=== PATIENT | male | born 1940 | race Caucasian/White ===

== ENCOUNTER 2021-11-02 12:33 | Emergency (ER) | payer MEDICARE, OTHER ==
[2021-11-02] MEDS ORDERED: Lidocaine/Transparent Dressing 1 EACH KIT ONE (14:15)
== END 2021-11-02 20:05 ==
LOC: CSHERS 12:33
DX: S43.402A Unspecified sprain of left shoulder joint, initial encounter (principal); K59.00 Constipation, unspecified; J44.9 Chronic obstructive pulmonary disease, unspecified; M10.9 Gout, unspecified; I48.91 Unspecified atrial fibrillation; E03.9 Hypothyroidism, unspecified; I10 Essential (primary) hypertension; K21.9 Gastro-esophageal reflux disease without esophagitis; Z79.899 Other long term (current) drug therapy; X58.XXXA Exposure to other specified factors, initial encounter

== ENCOUNTER 2022-01-08 00:23 | Inpatient (IN) | payer MEDICARE ==
[2022-01-08 01:16] LABS: #Basophils 0.1 10x3/uL (0.0-0.2); #Eosinphils 0.1 10x3/uL (0.0-0.5); #Monocytes 0.9 10x3/uL (0.0-1.1); #Neutrophils 10.3 10x3/uL (1.5-8.4); %Basophils 0.5 % (0.0-2.0); %Eosinophils 0.5 % (0.0-6.0); %Lymphocytes 5.9 % (18.0-47.0); %Monocytes 7.3 % (0.0-10.0); Hemoglobin 7.9 g/dL (13.5-17.5); Mean Corpuscular HGB CONC 27.7 g/dL (32.0-36.0); Mean Corpuscular Hemoglobin 24.6 pg (27.0-33.0); Mean Corpuscular Volume 88.8 fl (81.2-95.1); Mean Platelet Volume 11.3 fl (7.4-10.4); Platelet Count 190 10x3/uL (150-450); RBC Distribution Width 20.5 % (11.5-14.5); Red Blood Cell (RBC) Count 3.21 10x6/uL (4.32-5.72); White Blood Cell (WBC) Count 12.7 10x3/uL (3.5-10.5)
[2022-01-08 01:33] LABS: Anisocytosis SLIGHT = 6-15 cells (100X) (0-5/hpf); Basophilic Stippling SLIGHT = 1-2 cells (100X) (None Seen); Hypochromia SLIGHT = 6-15 cells (100X) (0-5/hpf); Ovalocytes SLIGHT = 2-5 cells (100X) (0-1/hpf)
[2022-01-08 01:34] LABS: ALT (SGPT) 10 U/L (8-55); AST (SGOT) 19 U/L (5-34); Albumin 3.5 g/dL (3.4-4.8); Alkaline Phosphatase 84 U/L (40-110); BUN (Urea Nitrogen) 24 mg/dL (8.4-25.7); Bilirubin, Total 0.7 mg/dL (0.2-1.2); Calc. Creatinine Clearance 0 mL/min (70-130); Calcium 9.2 mg/dL (7.8-10.44); Globulin 3.8 g/dL (2.4-3.5); Glucose 116 mg/dL (83-110); Protein, Total 7.3 g/dL (5.8-8.1)
[2022-01-08 01:35] LABS: Platelet Morphology Comment Appears Adequate; Stomatocytes SLIGHT = 2-5 cells (100X) (0-1/hpf)
[2022-01-08 01:41] LABS: Anion Gap 21 mmol/L (10-20); Carbon Dioxide 34 mmol/L (23-31); Chloride 94 mmol/L (98-107); Potassium 4.9 mmol/L (3.5-5.1); Sodium 144 mmol/L (136-145)
[2022-01-08] MEDS ORDERED: Furosemide 40 MG/4 ML VIAL ONE (02:14)
[2022-01-08 02:25] LABS: SARS-CoV-2 NAA Rapid Test Not Detected (NotDetected)
[2022-01-08] MEDS ORDERED: Acetaminophen 325 MG TAB PO PRN (02:52)
[2022-01-08] MEDS ORDERED: Ondansetron PF 4 MG/2 ML Vial IVP PRN (02:52)
[2022-01-08] MEDS ORDERED: Senokot S 8.6-50 MG TAB PO PRN (02:52)
[2022-01-08] MEDS ORDERED: ALPRAZolam 0.25 MG TAB PO PRN (02:56)
[2022-01-08] MEDS ORDERED: Digoxin 0.5 MG/2 ML AMP ONE (03:12)
[2022-01-08 04:30] VITALS: BMI 33.7
[2022-01-08] MEDS: Furosemide 20 MG/2 ML VIAL SLOW IVP SCH ×2 (06:01→14:00)
[2022-01-08] MEDS: Levothyroxine Sodium 50 MCG TAB PO SCH (06:01)
[2022-01-08] MEDS: Docusate 100 MG CAP PO SCH ×2 (08:00→21:46)
[2022-01-08] MEDS: Digoxin 0.125 MG TAB PO SCH (08:00)
[2022-01-08] MEDS: Ferrous Sulfate 325 MG TAB PO SCH (08:00)
[2022-01-08] MEDS: Allopurinol 300 MG TAB PO SCH (08:01)
[2022-01-08] MEDS: Apixaban 5 MG TAB PO SCH ×2 (08:01→21:46)
[2022-01-08] MEDS: Pregabalin 50 MG CAP PO SCH ×2 (08:01→21:46)
[2022-01-08 10:29] LABS: #Basophils 0.1 10x3/uL (0.0-0.2); #Eosinphils 0.1 10x3/uL (0.0-0.5); #Neutrophils 6.8 10x3/uL (1.5-8.4); %Basophils 0.5 % (0.0-2.0); %Eosinophils 1.4 % (0.0-6.0); %Lymphocytes 9.6 % (18.0-47.0); %Monocytes 10.4 % (0.0-10.0); %Neutrophils 73.5 % (40.0-75.0); Hemoglobin 7.3 g/dL (13.5-17.5); Mean Corpuscular HGB CONC 28.3 g/dL (32.0-36.0); Mean Corpuscular Volume 88.4 fl (81.2-95.1); Mean Platelet Volume 11.6 fl (7.4-10.4); Platelet Count 163 10x3/uL (150-450); Red Blood Cell (RBC) Count 2.92 10x6/uL (4.32-5.72); White Blood Cell (WBC) Count 9.2 10x3/uL (3.5-10.5)
[2022-01-08 10:40] LABS: BUN (Urea Nitrogen) 24 mg/dL (8.4-25.7); Calc. Creatinine Clearance 93 mL/min (70-130); Calcium 9.1 mg/dL (7.8-10.44); Glucose 115 mg/dL (83-110)
[2022-01-08 10:47] LABS: Anion Gap 15 mmol/L (10-20); Carbon Dioxide 38 mmol/L (23-31); Chloride 91 mmol/L (98-107); Potassium 4.3 mmol/L (3.5-5.1); Sodium 140 mmol/L (136-145)
[2022-01-08 11:00] LABS: CKMB 1.3 ng/mL (0-6.6)
[2022-01-08 15:14] LABS: CKMB 1.4 ng/mL (0-6.6)
[2022-01-08 15:32] LABS: Hemoglobin 7.3 g/dL (13.5-17.5); Platelet Count 174 10x3/uL (150-450)
[2022-01-08 18:28] LABS: CKMB 1.6 ng/mL (0-6.6)
[2022-01-08] MEDS: Tamsulosin HCl 0.4 MG CAP PO SCH (21:45)
[2022-01-08] MEDS: Montelukast Sodium 10 mg Tablet PO SCH (21:45)
[2022-01-08 22:51] LABS: CKMB 1.6 ng/mL (0-6.6)
[2022-01-09] MEDS: Calcium Carbonate 500 MG ChewTAB PO PRN ×2 (01:26→05:35)
[2022-01-09] MEDS: Levothyroxine Sodium 50 MCG TAB PO SCH ×2 (05:25→07:31)
[2022-01-09] MEDS: Furosemide 20 MG/2 ML VIAL SLOW IVP SCH ×2 (05:27→14:00)
[2022-01-09] MEDS ORDERED: Colchicine 0.6 MG TAB PO SCH (06:15)
[2022-01-09] MEDS: Digoxin 0.125 MG TAB PO SCH (08:20)
[2022-01-09] MEDS: Pregabalin 50 MG CAP PO SCH ×2 (08:20→21:47)
[2022-01-09] MEDS: Docusate 100 MG CAP PO SCH ×2 (08:21→21:47)
[2022-01-09] MEDS: Apixaban 5 MG TAB PO SCH (08:21)
[2022-01-09] MEDS: Ferrous Sulfate 325 MG TAB PO SCH (08:21)
[2022-01-09] MEDS: Allopurinol 300 MG TAB PO SCH (08:23)
[2022-01-09] MEDS: Tamsulosin HCl 0.4 MG CAP PO SCH (21:47)
[2022-01-09] MEDS: Montelukast Sodium 10 mg Tablet PO SCH (21:47)
[2022-01-10] MEDS: Calcium Carbonate 500 MG ChewTAB PO PRN (03:25)
[2022-01-10 05:06] LABS: Hemoglobin 8.4 g/dL (13.5-17.5); Mean Corpuscular HGB CONC 29.7 g/dL (32.0-36.0); Mean Corpuscular Hemoglobin 25.5 pg (27.0-33.0); Mean Corpuscular Volume 85.8 fl (81.2-95.1); Mean Platelet Volume 11.6 fl (7.4-10.4); Platelet Count 169 10x3/uL (150-450); RBC Distribution Width 19.9 % (11.5-14.5); White Blood Cell (WBC) Count 7.6 10x3/uL (3.5-10.5)
[2022-01-10 05:10] LABS: ALT (SGPT) 8 U/L (8-55); AST (SGOT) 17 U/L (5-34); Albumin 3.2 g/dL (3.4-4.8); Alkaline Phosphatase 83 U/L (40-110); BUN (Urea Nitrogen) 21 mg/dL (8.4-25.7); Bilirubin, Total 0.8 mg/dL (0.2-1.2); Calc. Creatinine Clearance 110 mL/min (70-130); Calcium 9.3 mg/dL (7.8-10.44); Globulin 3.5 g/dL (2.4-3.5); Glucose 103 mg/dL (83-110); Protein, Total 6.7 g/dL (5.8-8.1)
[2022-01-10 05:18] LABS: Anion Gap 18 mmol/L (10-20); Carbon Dioxide 40 mmol/L (23-31); Chloride 90 mmol/L (98-107); Potassium 4.5 mmol/L (3.5-5.1); Sodium 143 mmol/L (136-145)
[2022-01-10 05:43] LABS: MDiff Complete? YES
[2022-01-10 05:46] LABS: Band 6 % (5-11); Eosinophils 3 % (0-10); Lymphocytes 6 % (21-51); Metamyelocyte 1 % (0-0); Monocytes 9 % (0-10); Myelocyte 2 % (0-0); Neutrophil 73 % (42-75)
[2022-01-10 05:47] LABS: Anisocytosis SLIGHT = 6-15 cells (100X) (0-5/hpf); Hypochromia SLIGHT = 6-15 cells (100X) (0-5/hpf); Large Platelets SLIGHT; Platelet Morphology Comment Appears Adequate; Stomatocytes SLIGHT = 2-5 cells (100X) (0-1/hpf)
[2022-01-10] MEDS: Furosemide 20 MG/2 ML VIAL SLOW IVP SCH ×2 (05:47→15:09)
[2022-01-10] MEDS: Levothyroxine Sodium 50 MCG TAB PO SCH (05:47)
[2022-01-10] MEDS: Pregabalin 50 MG CAP PO SCH ×2 (08:50→20:53)
[2022-01-10] MEDS: Allopurinol 300 MG TAB PO SCH (08:50)
[2022-01-10] MEDS: Digoxin 0.125 MG TAB PO SCH (08:51)
[2022-01-10] MEDS: Ferrous Sulfate 325 MG TAB PO SCH (08:51)
[2022-01-10] MEDS: Docusate 100 MG CAP PO SCH ×2 (08:51→20:53)
[2022-01-10] MEDS ORDERED: Simethicone Chewable 80 MG TAB PO PRN (12:14)
[2022-01-10] MEDS: Montelukast Sodium 10 mg Tablet PO SCH (20:53)
[2022-01-10] MEDS: Tamsulosin HCl 0.4 MG CAP PO SCH (20:53)
[2022-01-10] MEDS: Apixaban 5 MG TAB PO SCH (20:53)
[2022-01-11] MEDS ORDERED: Acetaminophen/Codeine 30-300mg Tablet PO SCH (03:00)
[2022-01-11] MEDS: Levothyroxine Sodium 50 MCG TAB PO SCH (06:14)
[2022-01-11] MEDS: Furosemide 20 MG/2 ML VIAL SLOW IVP SCH (06:14)
[2022-01-11] MEDS: Pregabalin 50 MG CAP PO SCH (09:38)
[2022-01-11] MEDS: Allopurinol 300 MG TAB PO SCH (09:39)
[2022-01-11] MEDS: Docusate 100 MG CAP PO SCH (09:39)
[2022-01-11] MEDS: Digoxin 0.125 MG TAB PO SCH (09:39)
[2022-01-11] MEDS: Apixaban 5 MG TAB PO SCH (09:39)
[2022-01-11] MEDS: Ferrous Sulfate 325 MG TAB PO SCH (09:39)
[2022-01-11 12:08] VITALS: BP 94/59; TEMP 97.6
[2022-01-12] MEDS ORDERED: Aspirin Chewable 81 MG TAB PO SCH (09:00)
== END 2022-01-11 15:59 | DRG 811 ==
LOC: CSHERS 00:23 → CSHTELE 04:24
PROVIDERS: ADMIT Student in an Organized Health Care Education/Training Program; ATTEND Student in an Organized Health Care Education/Training Program
PROC: 30233N1 Transfusion of Nonautologous Red Blood Cells into Peripheral Vein, Percutaneous Approach (ICD-10-PCS; principal; 2022-01-08)
DX: D50.9 Iron deficiency anemia, unspecified (principal); I50.33 Acute on chronic diastolic (congestive) heart failure; I13.0 Hypertensive heart and chronic kidney disease with heart failure and stage 1 through stage 4 chronic kidney disease, or unspecified chronic kidney disease; I48.20 Chronic atrial fibrillation, unspecified; J96.11 Chronic respiratory failure with hypoxia; I24.8 Other forms of acute ischemic heart disease; M10.9 Gout, unspecified; E03.9 Hypothyroidism, unspecified; J44.9 Chronic obstructive pulmonary disease, unspecified; N18.2 Chronic kidney disease, stage 2 (mild); G47.33 Obstructive sleep apnea (adult) (pediatric); D63.1 Anemia in chronic kidney disease; Z20.822 Contact with and (suspected) exposure to COVID-19; Z79.899 Other long term (current) drug therapy; Z79.01 Long term (current) use of anticoagulants; Z79.51 Long term (current) use of inhaled steroids; Z90.49 Acquired absence of other specified parts of digestive tract; Z98.890 Other specified postprocedural states
CPT/HCPCS: 36415; 36430; 71045; 80053; 82553; 83880; 84443; 84484; 85025; 86850; 86900; 86901; 93005; 94760; 96374; 96375; J1160; J1940; P9016

== ENCOUNTER 2022-01-24 06:14 | Emergency (ER) | payer MEDICARE ==
[2022-01-24] MEDS ORDERED: Oxymetazoline HCl 0.05% ( 15 ML ) ONE (06:36)
[2022-01-24 07:14] LABS: #Eosinphils 0.1 10x3/uL (0.0-0.5); #Monocytes 0.9 10x3/uL (0.0-1.1); #Neutrophils 7.1 10x3/uL (1.5-8.4); %Basophils 0.3 % (0.0-2.0); %Eosinophils 1.4 % (0.0-6.0); %Monocytes 9.2 % (0.0-10.0); %Neutrophils 76.2 % (40.0-75.0); Hemoglobin 7.1 g/dL (13.5-17.5); Mean Corpuscular Hemoglobin 25.9 pg (27.0-33.0); Mean Corpuscular Volume 89.4 fl (81.2-95.1); Mean Platelet Volume 11.4 fl (7.4-10.4); Platelet Count 154 10x3/uL (150-450); RBC Distribution Width 21.1 % (11.5-14.5); Red Blood Cell (RBC) Count 2.74 10x6/uL (4.32-5.72); White Blood Cell (WBC) Count 9.3 10x3/uL (3.5-10.5)
[2022-01-24 07:26] LABS: Prothrombin Time 11.2 sec (9.5-12.1)
[2022-01-24 07:45] LABS: Hypochromia SLIGHT = 6-15 cells (100X) (0-5/hpf); Polychromasia SLIGHT = 2-3 cells (100X) (0-2/hpf); Stomatocytes SLIGHT = 2-5 cells (100X) (0-1/hpf)
[2022-01-24 07:47] LABS: Ovalocytes SLIGHT = 2-5 cells (100X) (0-1/hpf)
== END 2022-01-24 09:05 | disposition home or self-care (01) ==
LOC: CSHERS 06:14
DX: R04.0 Epistaxis (principal); D64.9 Anemia, unspecified; I10 Essential (primary) hypertension; I48.91 Unspecified atrial fibrillation; E03.9 Hypothyroidism, unspecified; J44.9 Chronic obstructive pulmonary disease, unspecified; M10.9 Gout, unspecified; K21.9 Gastro-esophageal reflux disease without esophagitis; Z79.01 Long term (current) use of anticoagulants; Z79.51 Long term (current) use of inhaled steroids; Z79.890 Hormone replacement therapy; Z79.899 Other long term (current) drug therapy
CPT/HCPCS: 85025; 85610; 99283

== ENCOUNTER 2022-02-03 14:39 | Emergency (ER) | payer MEDICARE ==
[2022-02-03 15:43] LABS: MDiff Complete? YES; Mean Corpuscular HGB CONC 27.7 g/dL (32.0-36.0); Mean Corpuscular Hemoglobin 25.7 pg (27.0-33.0); Mean Platelet Volume 10.6 fl (7.4-10.4); Platelet Count 173 10x3/uL (150-450); RBC Distribution Width 20.3 % (11.5-14.5); Red Blood Cell (RBC) Count 2.72 10x6/uL (4.32-5.72); White Blood Cell (WBC) Count 7.7 10x3/uL (3.5-10.5)
[2022-02-03] MEDS ORDERED: Oxymetazoline HCl 0.05% ( 15 ML ) ONE (15:53)
[2022-02-03 15:59] LABS: ALT (SGPT) 9 U/L (8-55); AST (SGOT) 17 U/L (5-34); Albumin 3.3 g/dL (3.4-4.8); Alkaline Phosphatase 80 U/L (40-110); Anion Gap 15 mmol/L (10-20); BUN (Urea Nitrogen) 19 mg/dL (8.4-25.7); Calc. Creatinine Clearance 0 mL/min (70-130); Calcium 8.8 mg/dL (7.8-10.44); Carbon Dioxide 36 mmol/L (23-31); Chloride 95 mmol/L (98-107); Globulin 3.5 g/dL (2.4-3.5); Glucose 119 mg/dL (83-110); Potassium 4.7 mmol/L (3.5-5.1); Protein, Total 6.8 g/dL (5.8-8.1); Sodium 141 mmol/L (136-145)
[2022-02-03 16:02] LABS: Eosinophils 3 % (0-10); Lymphocytes 11 % (21-51); Metamyelocyte 1 % (0-0); Monocytes 5 % (0-10); Myelocyte 3 % (0-0); Neutrophil 77 % (42-75)
[2022-02-03 16:03] LABS: Anisocytosis SLIGHT = 6-15 cells (100X) (0-5/hpf); Hypochromia SLIGHT = 6-15 cells (100X) (0-5/hpf); Platelet Morphology Comment Appears Adequate
== END 2022-02-03 16:57 | disposition home or self-care (01) ==
LOC: CSHERS 14:39
DX: R04.0 Epistaxis (principal); J44.9 Chronic obstructive pulmonary disease, unspecified; E03.9 Hypothyroidism, unspecified; I10 Essential (primary) hypertension; K21.9 Gastro-esophageal reflux disease without esophagitis
CPT/HCPCS: 36415; 80053; 85025; 99283

== ENCOUNTER 2022-02-05 06:43 | Emergency (ER) | payer MEDICARE ==
[2022-02-05 08:00] LABS: #Monocytes 0.6 10x3/uL (0.0-1.1); #Neutrophils 9.6 10x3/uL (1.5-8.4); %Basophils 0.2 % (0.0-2.0); %Eosinophils 0.3 % (0.0-6.0); %Lymphocytes 3.8 % (18.0-47.0); %Monocytes 5.5 % (0.0-10.0); %Neutrophils 86.1 % (40.0-75.0); Hemoglobin 7.1 g/dL (13.5-17.5); Mean Corpuscular HGB CONC 29.2 g/dL (32.0-36.0); Mean Corpuscular Hemoglobin 25.8 pg (27.0-33.0); Mean Corpuscular Volume 88.4 fl (81.2-95.1); Platelet Count 171 10x3/uL (150-450); RBC Distribution Width 19.6 % (11.5-14.5); Red Blood Cell (RBC) Count 2.75 10x6/uL (4.32-5.72); White Blood Cell (WBC) Count 11.2 10x3/uL (3.5-10.5)
[2022-02-05 08:36] LABS: ALT (SGPT) 10 U/L (8-55); AST (SGOT) 22 U/L (5-34); Albumin 3.3 g/dL (3.4-4.8); Alkaline Phosphatase 76 U/L (40-110); Anion Gap 16 mmol/L (10-20); BUN (Urea Nitrogen) 27 mg/dL (8.4-25.7); Bilirubin, Total 0.9 mg/dL (0.2-1.2); Calc. Creatinine Clearance 0 mL/min (70-130); Calcium 9.1 mg/dL (7.8-10.44); Carbon Dioxide 32 mmol/L (23-31); Chloride 91 mmol/L (98-107); Glucose 111 mg/dL (83-110); Potassium 4.9 mmol/L (3.5-5.1); Protein, Total 7.3 g/dL (5.8-8.1); Sodium 134 mmol/L (136-145)
== END 2022-02-05 10:40 | disposition home or self-care (01) ==
LOC: CSHERS 06:43
DX: I48.91 Unspecified atrial fibrillation (principal); R09.02 Hypoxemia; J44.9 Chronic obstructive pulmonary disease, unspecified; E03.9 Hypothyroidism, unspecified; K21.9 Gastro-esophageal reflux disease without esophagitis; I13.2 Hypertensive heart and chronic kidney disease with heart failure and with stage 5 chronic kidney disease, or end stage renal disease; N18.6 End stage renal disease; I50.9 Heart failure, unspecified; Z79.899 Other long term (current) drug therapy
CPT/HCPCS: 36415; 71045; 80053; 83880; 84484; 85025; 87040; 93005

== ENCOUNTER 2022-02-07 18:57 | Emergency (ER) | payer MEDICARE, OTHER ==
[2022-02-07] MEDS ORDERED: Ketorolac Tromethamine 30 MG/ML VIAL ONE (20:46)
== END 2022-02-07 21:05 | disposition home or self-care (01) ==
LOC: CSHERS 18:57
DX: K59.00 Constipation, unspecified (principal); E03.9 Hypothyroidism, unspecified; K21.9 Gastro-esophageal reflux disease without esophagitis; I13.2 Hypertensive heart and chronic kidney disease with heart failure and with stage 5 chronic kidney disease, or end stage renal disease; N18.6 End stage renal disease; I50.9 Heart failure, unspecified; J43.9 Emphysema, unspecified; Z79.899 Other long term (current) drug therapy
CPT/HCPCS: 96374; J1885

== ENCOUNTER 2022-02-21 20:56 | Emergency (ER) | payer MEDICARE ==
[2022-02-21 21:40] LABS: BUN (Urea Nitrogen) 30 mg/dL (8.4-25.7); Calc. Creatinine Clearance 0 mL/min (70-130); Calcium 9.3 mg/dL (7.8-10.44); Estimated GFR 57; Glucose 104 mg/dL (83-110)
[2022-02-21 21:47] LABS: Anion Gap 16 mmol/L (10-20); Carbon Dioxide 39 mmol/L (23-31); Chloride 88 mmol/L (98-107); Potassium 5.4 mmol/L (3.5-5.1); Sodium 138 mmol/L (136-145)
== END 2022-02-21 23:16 | disposition home or self-care (01) ==
LOC: CSHERS 20:56
DX: R79.89 Other specified abnormal findings of blood chemistry (principal); E03.9 Hypothyroidism, unspecified; K21.9 Gastro-esophageal reflux disease without esophagitis; I13.2 Hypertensive heart and chronic kidney disease with heart failure and with stage 5 chronic kidney disease, or end stage renal disease; N18.6 End stage renal disease; I50.9 Heart failure, unspecified; J43.9 Emphysema, unspecified; Z79.899 Other long term (current) drug therapy
CPT/HCPCS: 36415; 80048; 99283

== ENCOUNTER 2022-05-02 13:52 | Inpatient (IN) | payer MEDICARE, MEDICAID ==
[2022-05-02 15:19] LABS: ALT (SGPT) 9 U/L (8-55); AST (SGOT) 21 U/L (5-34); Albumin 3.5 g/dL (3.4-4.8); Alkaline Phosphatase 70 U/L (40-110); BUN (Urea Nitrogen) 58 mg/dL (8.4-25.7); Bilirubin, Total 0.9 mg/dL (0.2-1.2); Calc. Creatinine Clearance 0 mL/min (70-130); Estimated GFR 39; Globulin 3.8 g/dL (2.4-3.5); Glucose 107 mg/dL (83-110); Protein, Total 7.3 g/dL (5.8-8.1)
[2022-05-02 15:24] LABS: Hemoglobin 7.4 g/dL (13.5-17.5); Mean Corpuscular HGB CONC 28.4 g/dL (32.0-36.0); Mean Corpuscular Hemoglobin 26.4 pg (27.0-33.0); Mean Corpuscular Volume 93.2 fl (81.2-95.1); Mean Platelet Volume 11.2 fl (7.4-10.4); Platelet Count 148 10x3/uL (150-450); RBC Distribution Width 16.8 % (11.5-14.5); White Blood Cell (WBC) Count 6.7 10x3/uL (3.5-10.5)
[2022-05-02 15:25] LABS: MDiff Complete? YES
[2022-05-02 15:26] LABS: Anion Gap 17 mmol/L (10-20); Carbon Dioxide 38 mmol/L (23-31); Chloride 89 mmol/L (98-107); Potassium 4.9 mmol/L (3.5-5.1); Sodium 139 mmol/L (136-145)
[2022-05-02 15:47] LABS: CKMB 1.7 ng/mL (0-6.6)
[2022-05-02 16:10] LABS: Bilirubin Neg (Negative); Blood, Urine Negative (Negative); Clarity Clear (Clear); Glucose, Urine (Dipstick) Normal (Negative); Ketone, Urine Negative (Negative); Leukocyte Negative (Negative); Nitrite Negative (Negative); Protein, Urine (Dipstick) Negative (Neg-Trace); Specific Gravity, Urine 1.015 (1.002-1.036); Urobilinogen Normal mg/dL (Less than 2)
[2022-05-02] MEDS ORDERED: Aspirin Chewable 81 MG TAB ONE (17:02)
[2022-05-02 17:45] LABS: Eosinophils 1 % (0-10); Lymphocytes 14 % (21-51); Monocytes 8 % (0-10); Neutrophil 77 % (42-75)
[2022-05-02] MEDS ORDERED: Acetaminophen 325 MG TAB PO PRN (17:46)
[2022-05-02] MEDS ORDERED: Ondansetron PF 4 MG/2 ML Vial IVP PRN (17:46)
[2022-05-02] MEDS ORDERED: Ondansetron ODT 4 MG TAB PO PRN (17:46)
[2022-05-02 17:47] LABS: Hypochromia SLIGHT = 6-15 cells (100X) (0-5/hpf); Large Platelets SLIGHT; Platelet Morphology Comment Appears Adequate; Polychromasia SLIGHT = 2-3 cells (100X) (0-2/hpf); Stomatocytes SLIGHT = 2-5 cells (100X) (0-1/hpf)
[2022-05-02 18:09] LABS: SARS-CoV-2 NAA Rapid Test Not Detected (NotDetected)
[2022-05-02 18:30] VITALS: BMI 27.8
[2022-05-02 19:12] LABS: Magnesium 1.8 mg/dL (1.6-2.6)
[2022-05-02 20:09] LABS: Troponin I 0.481 ng/mL (< 0.028)
[2022-05-02 22:50] LABS: Troponin I 0.483 ng/mL (< 0.028)
[2022-05-03] MEDS ORDERED: Ketorolac Tromethamine 30 MG/ML VIAL IVP SCH (03:15)
[2022-05-03 04:46] LABS: #Eosinphils 0.2 10x3/uL (0.0-0.5); #Monocytes 0.7 10x3/uL (0.0-1.1); #Neutrophils 4.7 10x3/uL (1.5-8.4); %Basophils 0.3 % (0.0-2.0); %Eosinophils 2.6 % (0.0-6.0); %Neutrophils 70.8 % (40.0-75.0); Hemoglobin 6.8 g/dL (13.5-17.5); Mean Corpuscular HGB CONC 28.3 g/dL (32.0-36.0); Mean Corpuscular Volume 91.6 fl (81.2-95.1); Mean Platelet Volume 11.7 fl (7.4-10.4); Platelet Count 137 10x3/uL (150-450); Red Blood Cell (RBC) Count 2.62 10x6/uL (4.32-5.72); White Blood Cell (WBC) Count 6.6 10x3/uL (3.5-10.5)
[2022-05-03 05:09] LABS: BUN (Urea Nitrogen) 53 mg/dL (8.4-25.7); Calc. Creatinine Clearance 57 mL/min (70-130); Estimated GFR 55; Glucose 84 mg/dL (83-110)
[2022-05-03 05:16] LABS: Anion Gap 15 mmol/L (10-20); Carbon Dioxide 38 mmol/L (23-31); Chloride 88 mmol/L (98-107); Potassium 4.1 mmol/L (3.5-5.1); Sodium 137 mmol/L (136-145)
[2022-05-03 05:50] LABS: Anisocytosis SLIGHT = 6-15 cells (100X) (0-5/hpf); Hypochromia MODERATE=16-30 cells (100X) (0-5/hpf); Ovalocytes SLIGHT = 2-5 cells (100X) (0-1/hpf)
[2022-05-03 05:51] LABS: Platelet Morphology Comment Appears Adequate
[2022-05-03] MEDS: Aspirin Chewable 81 MG TAB PO SCH (08:08)
[2022-05-03] MEDS ORDERED: Calcium Carbonate 500 MG ChewTAB PO PRN (09:14)
[2022-05-03] MEDS ORDERED: diphenhydrAMINE 25 MG CAP PO PRN (09:14)
[2022-05-03] MEDS ORDERED: Furosemide 40 MG/4 ML VIAL IVP SCH (09:15)
[2022-05-03] MEDS ORDERED: Senokot S 8.6-50 MG TAB PO PRN (09:26)
[2022-05-03] MEDS ORDERED: Colchicine 0.6 MG TAB PO PRN (09:41)
[2022-05-03] MEDS: ALPRAZolam 0.25 MG TAB PO PRN ×2 (10:36→21:40)
[2022-05-03] MEDS ORDERED: Bumetanide 1 MG TAB PO SCH (21:00)
[2022-05-03] MEDS: Pregabalin 50 MG CAP PO SCH (21:39)
[2022-05-03] MEDS: Tamsulosin HCl 0.4 MG CAP PO SCH (21:39)
[2022-05-03] MEDS: Montelukast Sodium 10 mg Tablet PO SCH (21:39)
[2022-05-03] MEDS: Fluticasone Propionate Nasal Spray 16 gm Bottle NASAL SCH (21:40)
[2022-05-04 05:00] LABS: BUN (Urea Nitrogen) 47 mg/dL (8.4-25.7); Calc. Creatinine Clearance 64 mL/min (70-130); Calcium 8.8 mg/dL (7.8-10.44); Estimated GFR 63; Glucose 100 mg/dL (83-110)
[2022-05-04 05:07] LABS: #Eosinphils 0.3 10x3/uL (0.0-0.5); #Monocytes 0.8 10x3/uL (0.0-1.1); #Neutrophils 4.9 10x3/uL (1.5-8.4); %Basophils 0.6 % (0.0-2.0); %Eosinophils 4.2 % (0.0-6.0); %Lymphocytes 9.8 % (18.0-47.0); %Monocytes 10.9 % (0.0-10.0); %Neutrophils 70.5 % (40.0-75.0); Hemoglobin 8.1 g/dL (13.5-17.5); Mean Corpuscular HGB CONC 29.3 g/dL (32.0-36.0); Mean Corpuscular Hemoglobin 26.3 pg (27.0-33.0); Mean Corpuscular Volume 89.6 fl (81.2-95.1); Mean Platelet Volume 11.9 fl (7.4-10.4); Platelet Count 108 10x3/uL (150-450); RBC Distribution Width 17.1 % (11.5-14.5); Red Blood Cell (RBC) Count 3.08 10x6/uL (4.32-5.72)
[2022-05-04 05:15] LABS: Anion Gap 17 mmol/L (10-20); Carbon Dioxide 37 mmol/L (23-31); Chloride 90 mmol/L (98-107); Potassium 3.8 mmol/L (3.5-5.1); Sodium 140 mmol/L (136-145)
[2022-05-04] MEDS ORDERED: Levothyroxine Sodium 50 MCG TAB PO SCH (06:00)
[2022-05-04 06:51] LABS: Anisocytosis SLIGHT = 6-15 cells (100X) (0-5/hpf); Microcytosis SLIGHT = 6-15 cells (100X) (0-5/hpf)
[2022-05-04 06:52] LABS: Hypochromia SLIGHT = 6-15 cells (100X) (0-5/hpf); Platelet Morphology Comment Appears Decreased
[2022-05-04] MEDS ORDERED: Ferrous Sulfate 325 MG TAB PO SCH (08:00)
[2022-05-04] MEDS: Aspirin Chewable 81 MG TAB PO SCH (08:47)
[2022-05-04] MEDS: Pregabalin 50 MG CAP PO SCH ×2 (08:47→20:19)
[2022-05-04] MEDS: Fluticasone Propionate Nasal Spray 16 gm Bottle NASAL SCH ×2 (08:49→20:20)
[2022-05-04] MEDS ORDERED: Bumetanide 1 MG TAB PO SCH ×2 (09:00)
[2022-05-04] MEDS ORDERED: Digoxin 0.125 MG TAB PO SCH (09:00)
[2022-05-04] MEDS ORDERED: Allopurinol 100 MG TAB PO SCH (09:00)
[2022-05-04] MEDS ORDERED: Febuxostat 40 MG TAB PO SCH (09:00)
[2022-05-04] MEDS: Tamsulosin HCl 0.4 MG CAP PO SCH (20:19)
[2022-05-04] MEDS: Montelukast Sodium 10 mg Tablet PO SCH (20:20)
[2022-05-04] MEDS: ALPRAZolam 0.25 MG TAB PO PRN (20:20)
[2022-05-04 23:48] VITALS: BP 100/56; TEMP 98.2
== END 2022-05-05 00:10 | DRG 811 ==
LOC: CSHERS 13:52 → CSHTELE 18:26
PROVIDERS: ADMIT Internal Medicine; ATTEND Student in an Organized Health Care Education/Training Program
PROC: 30233N1 Transfusion of Nonautologous Red Blood Cells into Peripheral Vein, Percutaneous Approach (ICD-10-PCS; principal; 2022-05-02)
DX: D64.9 Anemia, unspecified (principal); I21.A1 Myocardial infarction type 2; N18.6 End stage renal disease; I48.20 Chronic atrial fibrillation, unspecified; J96.10 Chronic respiratory failure, unspecified whether with hypoxia or hypercapnia; J96.11 Chronic respiratory failure with hypoxia; I50.30 Unspecified diastolic (congestive) heart failure; I13.2 Hypertensive heart and chronic kidney disease with heart failure and with stage 5 chronic kidney disease, or end stage renal disease; D63.1 Anemia in chronic kidney disease; Z51.5 Encounter for palliative care; M1A.9XX0 Chronic gout, unspecified, without tophus (tophi); E03.9 Hypothyroidism, unspecified; J44.9 Chronic obstructive pulmonary disease, unspecified; D63.8 Anemia in other chronic diseases classified elsewhere; J61 Pneumoconiosis due to asbestos and other mineral fibers; K21.9 Gastro-esophageal reflux disease without esophagitis; G47.33 Obstructive sleep apnea (adult) (pediatric); Z20.822 Contact with and (suspected) exposure to COVID-19; Z99.81 Dependence on supplemental oxygen; Z91.09 Other allergy status, other than to drugs and biological substances; Z79.899 Other long term (current) drug therapy; Z79.01 Long term (current) use of anticoagulants; Z79.51 Long term (current) use of inhaled steroids; Z79.82 Long term (current) use of aspirin; Z79.890 Hormone replacement therapy; Z90.49 Acquired absence of other specified parts of digestive tract; Z98.890 Other specified postprocedural states; Z74.01 Bed confinement status
CPT/HCPCS: 36415; 36430; 51701; 71045; 80048; 80053; 81003; 82553; 83605; 83735; 83880; 84439; 84443; 84484; 85025; 86850; 86900; 86901; 93005; 94760; J1885; J1940; P9016

== ENCOUNTER 2022-06-06 09:54 | Inpatient (IN) | payer MEDICARE, MEDICAID ==
[2022-06-06 10:46] LABS: #Eosinphils 0.2 10x3/uL (0.0-0.5); #Monocytes 0.6 10x3/uL (0.0-1.1); #Neutrophils 5.3 10x3/uL (1.5-8.4); %Basophils 0.4 % (0.0-2.0); %Eosinophils 3.4 % (0.0-6.0); %Lymphocytes 10.3 % (18.0-47.0); %Monocytes 8.8 % (0.0-10.0); Hemoglobin 8.2 g/dL (13.5-17.5); Mean Corpuscular HGB CONC 27.8 g/dL (32.0-36.0); Mean Corpuscular Hemoglobin 25.9 pg (27.0-33.0); Mean Corpuscular Volume 93.1 fl (81.2-95.1); Mean Platelet Volume 11.6 fl (7.4-10.4); Platelet Count 155 10x3/uL (150-450); Red Blood Cell (RBC) Count 3.17 10x6/uL (4.32-5.72)
[2022-06-06 10:57] LABS: ALT (SGPT) Less than 6 U/L (8-55); AST (SGOT) 18 U/L (5-34); Albumin 3.1 g/dL (3.4-4.8); Alkaline Phosphatase 68 U/L (40-110); Anion Gap 14 mmol/L (10-20); BUN (Urea Nitrogen) 19 mg/dL (8.4-25.7); Bilirubin, Total 1.3 mg/dL (0.2-1.2); Calc. Creatinine Clearance 0 mL/min (70-130); Calcium 8.5 mg/dL (7.8-10.44); Carbon Dioxide 35 mmol/L (23-31); Chloride 95 mmol/L (98-107); Estimated GFR 71; Globulin 3.6 g/dL (2.4-3.5); Glucose 104 mg/dL (83-110); Potassium 3.6 mmol/L (3.5-5.1); Protein, Total 6.7 g/dL (5.8-8.1); Sodium 140 mmol/L (136-145)
[2022-06-06 11:18] LABS: CKMB 1.3 ng/mL (0-6.6)
[2022-06-06 11:42] LABS: Anisocytosis SLIGHT = 6-15 cells (100X) (0-5/hpf); Hypochromia SLIGHT = 6-15 cells (100X) (0-5/hpf)
[2022-06-06 11:43] LABS: Ovalocytes SLIGHT = 2-5 cells (100X) (0-1/hpf); Platelet Morphology Comment Appears Adequate
[2022-06-06] MEDS ORDERED: Furosemide 40 MG/4 ML VIAL ONE (11:55)
[2022-06-06] MEDS ORDERED: Aspirin Chewable 81 MG TAB ONE (11:55)
[2022-06-06 12:58] LABS: SARS-CoV-2 NAA Rapid Test Not Detected (NotDetected)
[2022-06-06 13:49] LABS: Troponin I 0.085 ng/mL (< 0.028)
[2022-06-06 15:06] LABS: Actual Bicarbonate (HCO3a) 37.9 mEq/L (22-28); Base Excess (BEa) 8.7 mEq/L (-2.0 to +3.0); CO2 Tension 86.8 mmHg (35.0-45.0); Calcium, Ionized (arterial) 1.12 mmol/L (1.12-1.30); Hemoglobin (Hb) 9.6 g/dL (14.0-18.0); O2 Tension (PaO2), arterial 149.2 mmHg (> 60.0); Potassium - ABG Lab 3.6 mmol/L (3.70-5.30); Puncture Site LRA; pH, Arterial 7.26 (7.35-7.45)
[2022-06-06] MEDS ORDERED: Fentanyl 100 MCG/2 ML VIAL ONE ×2 (15:35→17:49)
[2022-06-06] MEDS ORDERED: Succinylcholine 200 MG/10 ml SYRINGE FS ONE (15:36)
[2022-06-06] MEDS ORDERED: Acetaminophen 650 MG Suppository PR PRN (15:40)
[2022-06-06] MEDS ORDERED: Ondansetron ODT 4 MG TAB PO PRN (15:40)
[2022-06-06] MEDS ORDERED: Ondansetron PF 4 MG/2 ML Vial IVP PRN (15:40)
[2022-06-06] MEDS ORDERED: Electrolyte Replacement Protocol IVPB PRN (15:40)
[2022-06-06] MEDS ORDERED: Acetaminophen 325 MG TAB PO PRN (15:40)
[2022-06-06] MEDS ORDERED: Morphine 2 MG/ML VIAL SLOW IVP PRN (15:45)
[2022-06-06] MEDS ORDERED: Lorazepam 2 MG/ML VIAL SLOW IVP PRN (15:45)
[2022-06-06] MEDS ORDERED: Ventilator Sedation Protocol 1 EACH FS PRN (15:45)
[2022-06-06] MEDS ORDERED: fentaNYL Citrate-0.9 % NaCl/PF 100 ML IVPB SCH (15:45)
[2022-06-06] MEDS ORDERED: Fentanyl BOLUS 250 ML IVPB PRN (15:45)
[2022-06-06] MEDS ORDERED: Propofol 1,000 MG/100 ML VIAL IV PRN (15:45)
[2022-06-06] MEDS ORDERED: Propofol BOLUS 1,000 MG/100 ML VIAL IV PRN (15:45)
[2022-06-06] MEDS ORDERED: DISCONTINUE PREVIOUS NARCOTIC PAIN MEDICATIONS AND BENZODIAZEPINES FS SCH (15:45)
[2022-06-06] MEDS ORDERED: methylPREDNISolone Sod Succ/PF 125 MG/2 ML VIAL IVP SCH (16:00)
[2022-06-06] MEDS ORDERED: Potassium Phosphate 30 MMOL in Sodium Chloride 0.9% 250 ML 250 ML IVPB SCH (16:00)
[2022-06-06 16:07] LABS: Magnesium 1.9 mg/dL (1.6-2.6)
[2022-06-06] MEDS ORDERED: NOREPINEPHRINE 8 MG/250 ML-D5W 250 ML ONE (16:19)
[2022-06-06 17:02] LABS: Troponin I 0.082 ng/mL (< 0.028)
[2022-06-06] MEDS ORDERED: methylPREDNISolone Sod Succ/PF 125 MG/2 ML VIAL ONE (17:22)
[2022-06-06] MEDS ORDERED: Magnesium 2 GM/50 ML(in water) 2 GM in Premix Bag 1 BAG IVPB SCH (18:00)
[2022-06-06] MEDS ORDERED: Vancomycin 1.5 GRAM/300 ML BAG 1.5 GM in Premix Bag 1 BAG IVPB SCH ×2 (18:30→21:15)
[2022-06-06] MEDS ORDERED: NOREPINEPHRINE 8 MG/250 ML-D5W 250 ML IVPB SCH (19:45)
[2022-06-06] MEDS: Propofol 1,000 MG/100 ML VIAL IV PRN (20:00)
[2022-06-06] MEDS: methylPREDNISolone Sod Succ 40 MG VIAL IVP SCH (21:30)
[2022-06-06] MEDS: Heparin 5,000 UNITS/ML VIAL SC SCH (21:31)
[2022-06-06] MEDS: Cefepime 2 GM in Sodium Chloride 0.9% 100 ML IVPB SCH (21:32)
[2022-06-07] MEDS: methylPREDNISolone Sod Succ 40 MG VIAL IVP SCH ×3 (03:13→20:48)
[2022-06-07] MEDS ORDERED: Vancomycin HCl 1 GM in Sodium Chloride 0.9% 250 ML 250 ML IVPB SCH (04:00)
[2022-06-07 04:18] LABS: Hemoglobin 8.3 g/dL (13.5-17.5); Mean Corpuscular HGB CONC 28.5 g/dL (32.0-36.0); Mean Corpuscular Hemoglobin 25.6 pg (27.0-33.0); Mean Corpuscular Volume 89.8 fl (81.2-95.1); Red Blood Cell (RBC) Count 3.24 10x6/uL (4.32-5.72); White Blood Cell (WBC) Count 9.7 10x3/uL (3.5-10.5)
[2022-06-07 04:19] LABS: #Monocytes 0.1 10x3/uL (0.0-1.1); #Neutrophils 9.1 10x3/uL (1.5-8.4); %Basophils 0.1 % (0.0-2.0); %Lymphocytes 3.1 % (18.0-47.0); %Neutrophils 94.1 % (40.0-75.0); Mean Platelet Volume 11.7 fl (7.4-10.4); Platelet Count 202 10x3/uL (150-450); RBC Distribution Width 16.6 % (11.5-14.5)
[2022-06-07 04:23] LABS: Anion Gap 18 mmol/L (10-20); BUN (Urea Nitrogen) 20 mg/dL (8.4-25.7); Calc. Creatinine Clearance 75 mL/min (70-130); Calcium 8.3 mg/dL (7.8-10.44); Carbon Dioxide 31 mmol/L (23-31); Chloride 97 mmol/L (98-107); Estimated GFR 65; Glucose 139 mg/dL (83-110); Magnesium 2.1 mg/dL (1.6-2.6); Phosphorus 4.9 mg/dL (2.3-4.7); Potassium 3.9 mmol/L (3.5-5.1); Sodium 142 mmol/L (136-145)
[2022-06-07] MEDS: Furosemide 100 MG/10 ML VIAL SLOW IVP SCH ×2 (05:17→13:59)
[2022-06-07 05:45] LABS: Anisocytosis SLIGHT = 6-15 cells (100X) (0-5/hpf); Hypochromia SLIGHT = 6-15 cells (100X) (0-5/hpf); Macrocytosis SLIGHT = 6-15 cells (100X) (0-5/hpf); Polychromasia SLIGHT = 2-3 cells (100X) (0-2/hpf)
[2022-06-07 05:46] LABS: Target Cells SLIGHT = 2-5 cells (100X) (0-1/hpf)
[2022-06-07 07:42] LABS: ALV-art Gradient 125.575 mmHg (0-20); Actual Bicarbonate (HCO3a) 33.2 mEq/L (22-28); Base Excess (BEa) 9.9 mEq/L (-2.0 to +3.0); CO2 Tension 39.3 mmHg (35.0-45.0); Calcium, Ionized (arterial) 1.07 mmol/L (1.12-1.30); Carboxyhemoglobin (COHb) 1.1 gm% (0.0-3.0); Hemoglobin (Hb) 8.9 g/dL (14.0-18.0); O2 Tension (PaO2), arterial 110.5 mmHg (> 60.0); Potassium - ABG Lab 3.8 mmol/L (3.70-5.30); Puncture Site LBA; pH, Arterial 7.54 (7.35-7.45)
[2022-06-07] MEDS: Propofol 1,000 MG/100 ML VIAL IV PRN ×3 (08:35→22:25)
[2022-06-07] MEDS: Cefepime 2 GM in Sodium Chloride 0.9% 100 ML IVPB SCH ×2 (08:39→20:47)
[2022-06-07] MEDS: Vancomycin HCl 1 GM in Sodium Chloride 0.9% 250 ML 250 ML IVPB SCH ×2 (08:39→20:48)
[2022-06-07] MEDS: Heparin 5,000 UNITS/ML VIAL SC SCH ×3 (08:40→20:48)
[2022-06-07] MEDS ORDERED: Digoxin 0.5 MG/2 ML AMP SLOW IVP PRN (09:38)
[2022-06-07] MEDS ORDERED: Digoxin 0.5 MG/2 ML AMP SLOW IVP SCH (10:00)
[2022-06-08] MEDS: Propofol 1,000 MG/100 ML VIAL IV PRN (03:48)
[2022-06-08 04:35] LABS: Hemoglobin 8.2 g/dL (13.5-17.5); Mean Corpuscular HGB CONC 28.6 g/dL (32.0-36.0); Mean Corpuscular Hemoglobin 25.8 pg (27.0-33.0); Mean Corpuscular Volume 90.3 fl (81.2-95.1); Mean Platelet Volume 11.6 fl (7.4-10.4); Platelet Count 174 10x3/uL (150-450); RBC Distribution Width 16.8 % (11.5-14.5); Red Blood Cell (RBC) Count 3.18 10x6/uL (4.32-5.72); White Blood Cell (WBC) Count 9.6 10x3/uL (3.5-10.5)
[2022-06-08 04:50] LABS: Anion Gap 14 mmol/L (10-20); BUN (Urea Nitrogen) 31 mg/dL (8.4-25.7); Calc. Creatinine Clearance 68 mL/min (70-130); Calcium 8.6 mg/dL (7.8-10.44); Carbon Dioxide 32 mmol/L (23-31); Chloride 100 mmol/L (98-107); Estimated GFR 57; Glucose 138 mg/dL (83-110); Potassium 3.7 mmol/L (3.5-5.1); Sodium 142 mmol/L (136-145)
[2022-06-08 05:17] LABS: Actual Bicarbonate (HCO3a) 32.7 mEq/L (22-28); CO2 Tension 47.2 mmHg (35.0-45.0); Calcium, Ionized (arterial) 1.13 mmol/L (1.12-1.30); Carboxyhemoglobin (COHb) 0.2 gm% (0.0-3.0); Critical Notified By: CP.JL; Hemoglobin (Hb) 9.2 g/dL (14.0-18.0); O2 Tension (PaO2), arterial 114.8 mmHg (> 60.0); Potassium - ABG Lab 3.6 mmol/L (3.70-5.30); Puncture Site LRA; RapidComm Collect By CP.JL; pH, Arterial 7.46 (7.35-7.45)
[2022-06-08] MEDS: Furosemide 100 MG/10 ML VIAL SLOW IVP SCH ×2 (05:41→14:11)
[2022-06-08] MEDS: Levothyroxine Sodium 50 MCG TAB PO SCH (05:42)
[2022-06-08 06:59] LABS: MDiff Complete? YES
[2022-06-08 07:04] LABS: Band 1 % (5-11); Hypochromia SLIGHT = 6-15 cells (100X) (0-5/hpf); Lymphocytes 6 % (21-51); Monocytes 3 % (0-10); Neutrophil 90 % (42-75); Polychromasia SLIGHT = 2-3 cells (100X) (0-2/hpf)
[2022-06-08 07:05] LABS: Elliptocytes SLIGHT = 2-5 cells (100X) (0-1/hpf); Schistocytes SLIGHT = 2-5 cells (100X) (0-1/hpf)
[2022-06-08 07:06] LABS: Microcytosis SLIGHT = 6-15 cells (100X) (0-5/hpf); Platelet Morphology Comment Appears Adequate
[2022-06-08 07:13] LABS: Cardiac Risk 3.5 (Less than 4.5); Cholesterol 95 mg/dl (< 200 Desired); HDL Cholesterol 27 mg/dL (>60 Neg Risk); LDL Cholesterol, Calculated 51 mg/dL; Triglycerides 87 mg/dL (Less than 150)
[2022-06-08] MEDS ORDERED: Potassium Chloride 20 MEQ TAB PO SCH (08:00)
[2022-06-08] MEDS: Aspirin Chewable 81 MG TAB PO SCH (08:43)
[2022-06-08] MEDS: methylPREDNISolone Sod Succ 40 MG VIAL IVP SCH ×2 (08:44→21:18)
[2022-06-08] MEDS: Cefepime 2 GM in Sodium Chloride 0.9% 100 ML IVPB SCH ×2 (08:44→21:18)
[2022-06-08] MEDS: Heparin 5,000 UNITS/ML VIAL SC SCH ×3 (08:44→21:18)
[2022-06-08] MEDS: Potassium Chloride 20 MEQ TAB PO SCH (08:44)
[2022-06-08 09:11] LABS: Vancomycin, Trough 25.8 ug/mL
[2022-06-08] MEDS: Vancomycin HCl 1 GM in Sodium Chloride 0.9% 250 ML 250 ML IVPB SCH (10:31)
[2022-06-08] MEDS ORDERED: Vancomycin HCl 1 GM in Sodium Chloride 0.9% 250 ML 250 ML IVPB SCH (21:00)
[2022-06-09] MEDS ORDERED: Colchicine 0.6 MG TAB PO SCH (01:15)
[2022-06-09] MEDS ORDERED: ALPRAZolam 0.25 MG TAB PO SCH (01:15)
[2022-06-09] MEDS: Levothyroxine Sodium 50 MCG TAB PO SCH (05:14)
[2022-06-09] MEDS: Furosemide 100 MG/10 ML VIAL SLOW IVP SCH ×2 (05:14→14:12)
[2022-06-09 05:48] LABS: #Monocytes 0.3 10x3/uL (0.0-1.1); #Neutrophils 7.5 10x3/uL (1.5-8.4); %Basophils 0.1 % (0.0-2.0); %Lymphocytes 3.2 % (18.0-47.0); %Monocytes 3.3 % (0.0-10.0); %Neutrophils 92.4 % (40.0-75.0); Anion Gap 12 mmol/L (10-20); BUN (Urea Nitrogen) 39 mg/dL (8.4-25.7); Calc. Creatinine Clearance 73 mL/min (70-130); Calcium 8.6 mg/dL (7.8-10.44); Carbon Dioxide 32 mmol/L (23-31); Chloride 97 mmol/L (98-107); Estimated GFR 63; Glucose 119 mg/dL (83-110); Hemoglobin 7.5 g/dL (13.5-17.5); Mean Corpuscular HGB CONC 27.9 g/dL (32.0-36.0); Mean Corpuscular Volume 93.1 fl (81.2-95.1); Platelet Count 114 10x3/uL (150-450); Potassium 4.4 mmol/L (3.5-5.1); RBC Distribution Width 15.7 % (11.5-14.5); Red Blood Cell (RBC) Count 2.89 10x6/uL (4.32-5.72); Sodium 137 mmol/L (136-145); White Blood Cell (WBC) Count 8.1 10x3/uL (3.5-10.5)
[2022-06-09 06:42] LABS: Anisocytosis SLIGHT = 6-15 cells (100X) (0-5/hpf); Hypochromia SLIGHT = 6-15 cells (100X) (0-5/hpf)
[2022-06-09] MEDS: Aspirin Chewable 81 MG TAB PO SCH (08:06)
[2022-06-09] MEDS: Potassium Chloride 20 MEQ TAB PO SCH (08:06)
[2022-06-09] MEDS: methylPREDNISolone Sod Succ 40 MG VIAL IVP SCH ×2 (08:09→20:31)
[2022-06-09] MEDS: Heparin 5,000 UNITS/ML VIAL SC SCH ×3 (10:06→20:31)
[2022-06-10] MEDS: Levothyroxine Sodium 50 MCG TAB PO SCH (05:08)
[2022-06-10] MEDS: Furosemide 100 MG/10 ML VIAL SLOW IVP SCH ×2 (05:08→14:15)
[2022-06-10] MEDS ORDERED: Colchicine 0.6 MG TAB PO SCH (05:15)
[2022-06-10 05:41] LABS: Anion Gap 10 mmol/L (10-20); BUN (Urea Nitrogen) 45 mg/dL (8.4-25.7); Calc. Creatinine Clearance 80 mL/min (70-130); Calcium 8.8 mg/dL (7.8-10.44); Carbon Dioxide 35 mmol/L (23-31); Chloride 94 mmol/L (98-107); Estimated GFR 69; Glucose 118 mg/dL (83-110); Potassium 4.3 mmol/L (3.5-5.1); Sodium 135 mmol/L (136-145)
[2022-06-10 06:02] LABS: #Monocytes 0.3 10x3/uL (0.0-1.1); #Neutrophils 5.9 10x3/uL (1.5-8.4); %Lymphocytes 3.5 % (18.0-47.0); %Monocytes 3.8 % (0.0-10.0); %Neutrophils 91.2 % (40.0-75.0); Hemoglobin 7.7 g/dL (13.5-17.5); Mean Corpuscular HGB CONC 28.2 g/dL (32.0-36.0); Mean Corpuscular Hemoglobin 25.5 pg (27.0-33.0); Mean Corpuscular Volume 90.4 fl (81.2-95.1); Mean Platelet Volume 12.3 fl (7.4-10.4); Platelet Count 106 10x3/uL (150-450); RBC Distribution Width 15.2 % (11.5-14.5); Red Blood Cell (RBC) Count 3.02 10x6/uL (4.32-5.72); White Blood Cell (WBC) Count 6.5 10x3/uL (3.5-10.5)
[2022-06-10 06:47] LABS: Hypochromia SLIGHT = 6-15 cells (100X) (0-5/hpf); Microcytosis SLIGHT = 6-15 cells (100X) (0-5/hpf)
[2022-06-10 06:48] LABS: Basophilic Stippling SLIGHT = 1-2 cells (100X) (None Seen); Platelet Morphology Comment Appears Decreased
[2022-06-10] MEDS: methylPREDNISolone Sod Succ 40 MG VIAL IVP SCH ×2 (07:55→21:02)
[2022-06-10] MEDS: Potassium Chloride 20 MEQ TAB PO SCH (07:55)
[2022-06-10] MEDS: Aspirin Chewable 81 MG TAB PO SCH (07:55)
[2022-06-10] MEDS: Heparin 5,000 UNITS/ML VIAL SC SCH (07:55)
[2022-06-10] MEDS: Acetaminophen/Codeine 30-300mg Tablet PO PRN (16:42)
[2022-06-10] MEDS: Tamsulosin HCl 0.4 MG CAP PO SCH (20:51)
[2022-06-10] MEDS: Allopurinol 100 MG TAB PO SCH (20:51)
[2022-06-10] MEDS: Apixaban 5 MG TAB PO SCH (20:52)
[2022-06-11] MEDS: Acetaminophen/Codeine 30-300mg Tablet PO PRN (00:59)
[2022-06-11] MEDS ORDERED: ALPRAZolam 0.25 MG TAB PO SCH (01:30)
[2022-06-11 05:07] LABS: #Monocytes 0.4 10x3/uL (0.0-1.1); #Neutrophils 4.9 10x3/uL (1.5-8.4); %Lymphocytes 6.3 % (18.0-47.0); %Monocytes 6.7 % (0.0-10.0); %Neutrophils 86.3 % (40.0-75.0); Hemoglobin 7.9 g/dL (13.5-17.5); Mean Corpuscular Hemoglobin 25.7 pg (27.0-33.0); Mean Corpuscular Volume 85.7 fl (81.2-95.1); Platelet Count 82 10x3/uL (150-450); Red Blood Cell (RBC) Count 3.07 10x6/uL (4.32-5.72); White Blood Cell (WBC) Count 5.7 10x3/uL (3.5-10.5)
[2022-06-11 05:26] LABS: Anion Gap 12 mmol/L (10-20); BUN (Urea Nitrogen) 45 mg/dL (8.4-25.7); Calc. Creatinine Clearance 94 mL/min (70-130); Calcium 8.8 mg/dL (7.8-10.44); Carbon Dioxide 33 mmol/L (23-31); Chloride 91 mmol/L (98-107); Estimated GFR 81; Glucose 123 mg/dL (83-110); Potassium 4.8 mmol/L (3.5-5.1); Sodium 131 mmol/L (136-145)
[2022-06-11] MEDS: Levothyroxine Sodium 50 MCG TAB PO SCH (05:56)
[2022-06-11] MEDS: Furosemide 100 MG/10 ML VIAL SLOW IVP SCH ×2 (05:56→13:37)
[2022-06-11] MEDS: Apixaban 5 MG TAB PO SCH ×2 (08:35→20:20)
[2022-06-11] MEDS: Aspirin Chewable 81 MG TAB PO SCH (08:35)
[2022-06-11] MEDS: Allopurinol 100 MG TAB PO SCH ×2 (08:35→20:20)
[2022-06-11] MEDS: methylPREDNISolone Sod Succ 40 MG VIAL IVP SCH (08:35)
[2022-06-11] MEDS: Potassium Chloride 20 MEQ TAB PO SCH (08:36)
[2022-06-11] MEDS: Tamsulosin HCl 0.4 MG CAP PO SCH (20:20)
[2022-06-11] MEDS ORDERED: Colchicine 0.6 MG TAB PO PRN (21:45)
[2022-06-12] MEDS: Furosemide 100 MG/10 ML VIAL SLOW IVP SCH (05:34)
[2022-06-12 06:01] VITALS: BMI 33.3
[2022-06-12] MEDS: Levothyroxine Sodium 50 MCG TAB PO SCH (06:26)
[2022-06-12] MEDS: Allopurinol 100 MG TAB PO SCH (07:55)
[2022-06-12] MEDS: Aspirin Chewable 81 MG TAB PO SCH (07:55)
[2022-06-12] MEDS: Apixaban 5 MG TAB PO SCH (07:56)
[2022-06-12] MEDS: Potassium Chloride 20 MEQ TAB PO SCH (07:56)
[2022-06-12 07:57] VITALS: TEMP 97.8
[2022-06-12 08:45] LABS: BUN (Urea Nitrogen) 52 mg/dL (8.4-25.7); Calc. Creatinine Clearance 93 mL/min (70-130); Calcium 8.9 mg/dL (7.8-10.44); Estimated GFR 82; Glucose 103 mg/dL (83-110)
[2022-06-12 08:53] LABS: Anion Gap 13 mmol/L (10-20); Carbon Dioxide 36 mmol/L (23-31); Chloride 90 mmol/L (98-107); Potassium 4.4 mmol/L (3.5-5.1); Sodium 135 mmol/L (136-145)
[2022-06-12] MEDS ORDERED: methylPREDNISolone Sod Succ 40 MG VIAL IVP SCH (09:00)
[2022-06-12] MEDS ORDERED: diphenhydrAMINE 30 GM TUBE TOP PRN (10:42)
[2022-06-12] MEDS ORDERED: diphenhydrAMINE 30 GM TUBE TOP SCH (10:45)
[2022-06-12 11:33] VITALS: BP 101/57
== END 2022-06-12 13:29 | DRG 208 ==
LOC: CSHERS 09:54 → CSHICU 17:10
PROVIDERS: ADMIT Family Medicine; ATTEND Student in an Organized Health Care Education/Training Program
PROC: 5A1945Z Respiratory Ventilation, 24-96 Consecutive Hours (ICD-10-PCS; principal; 2022-06-06)
PROC: 0BH17EZ Insertion of Endotracheal Airway into Trachea, Via Natural or Artificial Opening (ICD-10-PCS; 2022-06-06)
PROC: 3E033XZ Introduction of Vasopressor into Peripheral Vein, Percutaneous Approach (ICD-10-PCS; 2022-06-06)
PROC: 0T9B70Z Drainage of Bladder with Drainage Device, Via Natural or Artificial Opening (ICD-10-PCS; 2022-06-06)
PROC: 05HM33Z Insertion of Infusion Device into Right Internal Jugular Vein, Percutaneous Approach (ICD-10-PCS; 2022-06-06)
PROC: 0HB4XZX Excision of Neck Skin, External Approach, Diagnostic (ICD-10-PCS; 2022-06-10)
DX: J96.22 Acute and chronic respiratory failure with hypercapnia (principal); I50.33 Acute on chronic diastolic (congestive) heart failure; N18.6 End stage renal disease; I21.A1 Myocardial infarction type 2; G92.8 Other toxic encephalopathy; I13.2 Hypertensive heart and chronic kidney disease with heart failure and with stage 5 chronic kidney disease, or end stage renal disease; I48.21 Permanent atrial fibrillation; R57.9 Shock, unspecified; E87.1 Hypo-osmolality and hyponatremia; I95.2 Hypotension due to drugs; T40.411A Poisoning by fentanyl or fentanyl analogs, accidental (unintentional), initial encounter; K21.9 Gastro-esophageal reflux disease without esophagitis; E03.9 Hypothyroidism, unspecified; C44.42 Squamous cell carcinoma of skin of scalp and neck; Z20.822 Contact with and (suspected) exposure to COVID-19; E66.9 Obesity, unspecified; M10.9 Gout, unspecified; J43.9 Emphysema, unspecified; G47.33 Obstructive sleep apnea (adult) (pediatric); J96.21 Acute and chronic respiratory failure with hypoxia; D63.1 Anemia in chronic kidney disease; Z91.81 History of falling; Z99.81 Dependence on supplemental oxygen; Z90.49 Acquired absence of other specified parts of digestive tract; Z79.82 Long term (current) use of aspirin; Z79.899 Other long term (current) drug therapy; Z99.3 Dependence on wheelchair; Z68.33 Body mass index [BMI] 33.0-33.9, adult
CPT/HCPCS: 31500; 36415; 36556; 36600; 71045; 80048; 80053; 80061; 80202; 82553; 82805; 83605; 83735; 83880; 84100; 84145; 84443; 84484; 85025; 88305; 93005; 94002; 94003; 94640; 94760; 96374; 96375; J0692; J1160; J1644; J1940; J2405; J2704; J2920; J2930; J3010; J3370; J3475; J3490; J7050; J7620; U0002

== ENCOUNTER 2022-06-27 21:46 | Emergency (ER) | payer MEDICARE, MEDICAID ==
[2022-06-28 01:20] LABS: Albumin 3.1 g/dL (3.4-4.8); Anion Gap 16 mmol/L (10-20); BUN (Urea Nitrogen) 41 mg/dL (8.4-25.7); Bilirubin, Total 0.5 mg/dL (0.2-1.2); Calc. Creatinine Clearance 0 mL/min (70-130); Calcium 8.4 mg/dL (7.8-10.44); Carbon Dioxide 31 mmol/L (23-31); Chloride 93 mmol/L (98-107); Estimated GFR 82; Globulin 3.2 g/dL (2.4-3.5); Glucose 111 mg/dL (83-110); Potassium 5.1 mmol/L (3.5-5.1); Protein, Total 6.3 g/dL (5.8-8.1); Sodium 135 mmol/L (136-145)
[2022-06-28 01:21] LABS: ALT (SGPT) 12 U/L (8-55); AST (SGOT) 27 U/L (5-34); Alkaline Phosphatase 102 U/L (40-110)
[2022-06-28 02:08] LABS: #Monocytes 0.5 10x3/uL (0.0-1.1); #Neutrophils 6.2 10x3/uL (1.5-8.4); %Eosinophils 0.3 % (0.0-6.0); %Lymphocytes 6.2 % (18.0-47.0); %Monocytes 6.8 % (0.0-10.0); %Neutrophils 85.9 % (40.0-75.0); Hemoglobin 6.3 g/dL (13.5-17.5); Mean Corpuscular Hemoglobin 25.1 pg (27.0-33.0); Mean Corpuscular Volume 86.5 fl (81.2-95.1); Mean Platelet Volume 12.2 fl (7.4-10.4); Platelet Count 137 10x3/uL (150-450); Red Blood Cell (RBC) Count 2.51 10x6/uL (4.32-5.72); White Blood Cell (WBC) Count 7.2 10x3/uL (3.5-10.5)
[2022-06-28 02:51] LABS: Anisocytosis SLIGHT = 6-15 cells (100X) (0-5/hpf); Hypochromia MODERATE=16-30 cells (100X) (0-5/hpf); Ovalocytes SLIGHT = 2-5 cells (100X) (0-1/hpf); Platelet Morphology Comment Appears Decreased; Schistocytes SLIGHT = 2-5 cells (100X) (0-1/hpf)
[2022-06-28] MEDS ORDERED: Lidocaine 5% Patch TD SCH (03:30)
== END 2022-06-28 05:51 | disposition home or self-care (01) ==
LOC: CSHERS 21:46
DX: K62.89 Other specified diseases of anus and rectum (principal); G89.29 Other chronic pain; K59.00 Constipation, unspecified; D64.9 Anemia, unspecified; J44.9 Chronic obstructive pulmonary disease, unspecified; K21.9 Gastro-esophageal reflux disease without esophagitis; I13.0 Hypertensive heart and chronic kidney disease with heart failure and stage 1 through stage 4 chronic kidney disease, or unspecified chronic kidney disease; I50.9 Heart failure, unspecified; N18.6 End stage renal disease; Z79.899 Other long term (current) drug therapy
CPT/HCPCS: 36430; 73030; 74018; 80053; 85025; 86850; 86900; 86901; 86920; 93005; 99284; P9016; 36415

== ENCOUNTER 2022-07-07 19:24 | Inpatient (IN) | payer MEDICARE, OTHER ==
[~2022-07-07 19:24] MED LIST: Iopamidol 300 61% 100 ML VIAL FS ONE
[2022-07-07 20:02] LABS: #Monocytes 1.4 10x3/uL (0.0-1.1); #Neutrophils 8.8 10x3/uL (1.5-8.4); %Basophils 0.3 % (0.0-2.0); %Eosinophils 0.1 % (0.0-6.0); %Lymphocytes 4.9 % (18.0-47.0); %Neutrophils 78.4 % (40.0-75.0); Hemoglobin 9.5 g/dL (13.5-17.5); Mean Corpuscular HGB CONC 28.8 g/dL (32.0-36.0); Mean Corpuscular Hemoglobin 25.5 pg (27.0-33.0); Mean Corpuscular Volume 88.7 fl (81.2-95.1); Mean Platelet Volume 12.5 fl (7.4-10.4); Platelet Count 212 10x3/uL (150-450); RBC Distribution Width 19.3 % (11.5-14.5); Red Blood Cell (RBC) Count 3.72 10x6/uL (4.32-5.72); White Blood Cell (WBC) Count 11.3 10x3/uL (3.5-10.5)
[2022-07-07] MEDS ORDERED: Ondansetron PF 4 MG/2 ML Vial ONE (20:07)
[2022-07-07 20:14] LABS: ALT (SGPT) 90 U/L (8-55); AST (SGOT) 62 U/L (5-34); Albumin 3.5 g/dL (3.4-4.8); Alkaline Phosphatase 120 U/L (40-110); Anion Gap 21 mmol/L (10-20); BUN (Urea Nitrogen) 64 mg/dL (8.4-25.7); Bilirubin, Total 1.7 mg/dL (0.2-1.2); Calc. Creatinine Clearance 0 mL/min (70-130); Carbon Dioxide 34 mmol/L (23-31); Chloride 91 mmol/L (98-107); Estimated GFR 28; Glucose 104 mg/dL (83-110); Lipase 19 U/L (8-78); Potassium 5.6 mmol/L (3.5-5.1); Protein, Total 6.5 g/dL (5.8-8.1); Sodium 140 mmol/L (136-145)
[2022-07-07 20:23] LABS: Bilirubin Neg (Negative); Blood, Urine 250 (Negative); Clarity Cloudy (Clear); Glucose, Urine (Dipstick) Normal (Negative); Ketone, Urine 5 mg/dL (Negative); Leukocyte 500 (Negative); Nitrite Positive (Negative); Protein, Urine (Dipstick) 30 mg/dl (Neg-Trace); Specific Gravity, Urine 1.015 (1.005-1.030); Urobilinogen Normal mg/dL (Less than 2)
[2022-07-07 20:34] LABS: RBC/HPF Greater than 50 HPF (0-3); WBC/HPF Greater than 50 HPF (0-3)
[2022-07-07 20:34] LABS: Actual Bicarbonate (HCO3v) 38 mEq/L (22-28); Base Excess 9.2 mEq/L (-2.0 to +3.0); Calcium, Ionized (venous) 1.05 mmol/L (1.16-1.32); Chloride (VBG) 93 mmol/L (98-106); Critical Notified By: CP.JL; Hemoglobin (Hb) 10.5 g/dL (12.6-17.4); Potassium (VBG) 5.37 mmol/L (3.70-5.30); Puncture Site Other Site; RapidComm Collect By LAB; Sodium 137.1 mmol/L (133-146); pH (venous) 7.32 (7.32-7.43)
[2022-07-07 20:35] LABS: Bacteria/HPF 3+ HPF (None Seen); Squamous Epithelial 0-3 HPF (0-3)
[2022-07-07 20:35] LABS: CKMB 1.6 ng/mL (0-6.6)
[2022-07-07] MEDS ORDERED: cefTRIAXone\\ROCEPHIN 500 MG VIAL ONE (21:36)
[2022-07-07 22:07] LABS: SARS-CoV-2 NAA Rapid Test Not Detected (NotDetected)
[2022-07-07] MEDS ORDERED: Diltiazem 125 MG/25 ML ONE (22:26)
[2022-07-07] MEDS ORDERED: Digoxin 0.5 MG/2 ML AMP ONE (22:40)
[2022-07-07] MEDS ORDERED: Senokot S 8.6-50 MG TAB PO PRN (22:54)
[2022-07-07] MEDS ORDERED: Ondansetron PF 4 MG/2 ML Vial IVP PRN (22:54)
[2022-07-07] MEDS ORDERED: Acetaminophen 325 MG TAB PO PRN (22:54)
[2022-07-07] MEDS ORDERED: Acetaminophen 650 MG Suppository PR PRN (22:54)
[2022-07-07] MEDS ORDERED: Calcium Carbonate 500 MG ChewTAB PO PRN (22:54)
[2022-07-07] MEDS ORDERED: Guaifenesin DM 100-10/5 ML UDCUP PO PRN (22:54)
[2022-07-07] MEDS ORDERED: Diltiazem 125 MG in Sodium Chloride 0.9% 100 ML IVPB SCH (23:00)
[2022-07-07] MEDS ORDERED: Azithromycin 500 MG in Sodium Chloride 0.9% 250 ML 250 ML IVPB SCH (23:59)
[2022-07-08 00:02] VITALS: BMI 34.2
[2022-07-08] MEDS ORDERED: Enoxaparin Sodium 120 MG/0.8 ML SYRINGE SC SCH ×2 (00:15→21:00)
[2022-07-08] MEDS: Azithromycin 500 MG in Sodium Chloride 0.9% 250 ML 250 ML IVPB SCH (00:48)
[2022-07-08 01:26] LABS: CKMB 1.7 ng/mL (0-6.6)
[2022-07-08 01:34] LABS: Anisocytosis SLIGHT = 6-15 cells (100X) (0-5/hpf); Hypochromia SLIGHT = 6-15 cells (100X) (0-5/hpf); Microcytosis SLIGHT = 6-15 cells (100X) (0-5/hpf); Stomatocytes SLIGHT = 2-5 cells (100X) (0-1/hpf)
[2022-07-08 01:35] LABS: Polychromasia SLIGHT = 2-3 cells (100X) (0-2/hpf)
[2022-07-08] MEDS ORDERED: Digoxin 0.5 MG/2 ML AMP SLOW IVP SCH (03:00)
[2022-07-08 04:53] LABS: Hemoglobin 9.4 g/dL (13.5-17.5); Mean Corpuscular HGB CONC 28.3 g/dL (32.0-36.0); Mean Corpuscular Hemoglobin 25.5 pg (27.0-33.0); Platelet Count 171 10x3/uL (150-450); RBC Distribution Width 19.3 % (11.5-14.5); Red Blood Cell (RBC) Count 3.69 10x6/uL (4.32-5.72); White Blood Cell (WBC) Count 10.2 10x3/uL (3.5-10.5)
[2022-07-08 04:53] LABS: Actual Bicarbonate (HCO3v) 33 mEq/L (22-28); Base Excess 6.4 mEq/L (-2.0 to +3.0); Chloride (VBG) 95 mmol/L (98-106); Critical Notified By: CP.JL; Hemoglobin (Hb) 10.6 g/dL (12.6-17.4); Potassium (VBG) 5.19 mmol/L (3.70-5.30); Puncture Site Other Site; RapidComm Collect By LAB; Sodium 137.4 mmol/L (133-146); pH (venous) 7.36 (7.32-7.43)
[2022-07-08 04:54] LABS: MDiff Complete? YES
[2022-07-08 05:06] LABS: Anion Gap 23 mmol/L (10-20); BUN (Urea Nitrogen) 63 mg/dL (8.4-25.7); Calc. Creatinine Clearance 43 mL/min (70-130); Calcium 8.6 mg/dL (7.8-10.44); Carbon Dioxide 30 mmol/L (23-31); Chloride 94 mmol/L (98-107); Estimated GFR 31; Glucose 84 mg/dL (83-110); Potassium 5.5 mmol/L (3.5-5.1); Sodium 141 mmol/L (136-145)
[2022-07-08 05:11] LABS: Critical Call Chem Troponin I RESULT DECREASING
[2022-07-08 05:29] LABS: CKMB 1.7 ng/mL (0-6.6)
[2022-07-08] MEDS: Levothyroxine Sodium 50 MCG TAB PO SCH (06:03)
[2022-07-08] MEDS: Furosemide 40 MG/4 ML VIAL SLOW IVP SCH (06:37)
[2022-07-08 06:43] LABS: Band 1 % (5-11); Eosinophils 1 % (0-10); Lymphocytes 6 % (21-51); Monocytes 8 % (0-10); Neutrophil 84 % (42-75)
[2022-07-08 06:48] LABS: Hypochromia SLIGHT = 6-15 cells (100X) (0-5/hpf); Macrocytosis SLIGHT = 6-15 cells (100X) (0-5/hpf); Microcytosis SLIGHT = 6-15 cells (100X) (0-5/hpf); Ovalocytes SLIGHT = 2-5 cells (100X) (0-1/hpf); Polychromasia SLIGHT = 2-3 cells (100X) (0-2/hpf); Stomatocytes SLIGHT = 2-5 cells (100X) (0-1/hpf)
[2022-07-08 06:49] LABS: Platelet Morphology Comment Appears Decreased; Schistocytes SLIGHT = 2-5 cells (100X) (0-1/hpf)
[2022-07-08] MEDS: Budesonide 0.5 MG/2 ML NEB NEB SCH ×2 (07:35→19:19)
[2022-07-08] MEDS ORDERED: FLU VACC QS2022-23(65YR UP)/PF 240 MCG/0.7 ML SYRINGE IM ONE (09:00)
[2022-07-08] MEDS: Digoxin 0.5 MG/2 ML AMP SLOW IVP SCH (09:19)
[2022-07-08] MEDS: Multivit, Therapeutic 1 TAB PO SCH (09:19)
[2022-07-08] MEDS: Famotidine/PF 20 mg/2ml Vial SLOW IVP SCH (09:19)
[2022-07-08] MEDS: HYDROcodone/Acetaminophen 5/325 mg Tablet PO PRN (10:16)
[2022-07-08] MEDS: Fluticasone Propionate Nasal Spray 16 gm Bottle NASAL SCH ×2 (10:26→21:09)
[2022-07-08] MEDS: Nystatin Powder 15 GM BOT TOP SCH ×2 (10:26→21:09)
[2022-07-08] MEDS: Morphine 2 MG/ML VIAL SLOW IVP PRN (12:20)
[2022-07-08 15:56] LABS: Anion Gap 17 mmol/L (10-20); BUN (Urea Nitrogen) 63 mg/dL (8.4-25.7); Calc. Creatinine Clearance 44 mL/min (70-130); Calcium 8.2 mg/dL (7.8-10.44); Carbon Dioxide 32 mmol/L (23-31); Chloride 93 mmol/L (98-107); Estimated GFR 31; Glucose 120 mg/dL (83-110); Potassium 5.3 mmol/L (3.5-5.1); Sodium 137 mmol/L (136-145)
[2022-07-08] MEDS: Cefepime 1 GM in Sodium Chloride 0.9% 100 ML IVPB SCH (16:23)
[2022-07-08] MEDS: Montelukast Sodium 10 mg Tablet PO SCH (21:09)
[2022-07-08] MEDS: Tamsulosin HCl 0.4 MG CAP PO SCH (21:10)
[2022-07-08] MEDS ORDERED: cefTRIAXone\\ROCEPHIN 1 GM in Sodium Chloride 0.9% 100 ML IVPB SCH (22:00)
[2022-07-09] MEDS: Azithromycin 500 MG in Sodium Chloride 0.9% 250 ML 250 ML IVPB SCH (01:37)
[2022-07-09] MEDS: Cefepime 1 GM in Sodium Chloride 0.9% 100 ML IVPB SCH ×2 (03:58→15:35)
[2022-07-09 05:02] LABS: Anion Gap 16 mmol/L (10-20); BUN (Urea Nitrogen) 63 mg/dL (8.4-25.7); Calc. Creatinine Clearance 44 mL/min (70-130); Calcium 8.5 mg/dL (7.8-10.44); Carbon Dioxide 32 mmol/L (23-31); Chloride 95 mmol/L (98-107); Estimated GFR 31; Glucose 103 mg/dL (83-110); Potassium 5.5 mmol/L (3.5-5.1); Sodium 137 mmol/L (136-145)
[2022-07-09 05:12] LABS: #Monocytes 1.5 10x3/uL (0.0-1.1); #Neutrophils 7.6 10x3/uL (1.5-8.4); %Basophils 0.3 % (0.0-2.0); %Eosinophils 0.3 % (0.0-6.0); %Lymphocytes 7.4 % (18.0-47.0); %Monocytes 14.1 % (0.0-10.0); %Neutrophils 73.7 % (40.0-75.0); Hemoglobin 9.4 g/dL (13.5-17.5); Mean Corpuscular HGB CONC 28.3 g/dL (32.0-36.0); Mean Corpuscular Hemoglobin 25.5 pg (27.0-33.0); Mean Corpuscular Volume 90.2 fl (81.2-95.1); Platelet Count 121 10x3/uL (150-450); Red Blood Cell (RBC) Count 3.68 10x6/uL (4.32-5.72); White Blood Cell (WBC) Count 10.3 10x3/uL (3.5-10.5)
[2022-07-09] MEDS: Levothyroxine Sodium 50 MCG TAB PO SCH (05:33)
[2022-07-09] MEDS: Furosemide 40 MG/4 ML VIAL SLOW IVP SCH (05:33)
[2022-07-09] MEDS: Budesonide 0.5 MG/2 ML NEB NEB SCH (07:43)
[2022-07-09] MEDS ORDERED: Enoxaparin Sodium 120 MG/0.8 ML SYRINGE SC ONE ×2 (08:30)
[2022-07-09] MEDS: Digoxin 0.5 MG/2 ML AMP SLOW IVP SCH (08:33)
[2022-07-09] MEDS: Enoxaparin Sodium 120 MG/0.8 ML SYRINGE SC SCH ×2 (08:33→20:39)
[2022-07-09] MEDS: Famotidine/PF 20 mg/2ml Vial SLOW IVP SCH (08:34)
[2022-07-09] MEDS: Fluticasone Propionate Nasal Spray 16 gm Bottle NASAL SCH ×2 (09:13→20:40)
[2022-07-09] MEDS: Nystatin Powder 15 GM BOT TOP SCH ×2 (09:14→20:40)
[2022-07-09] MEDS: Sodium Chloride 0.9% 1,000 ML IV SCH (09:16)
[2022-07-09] MEDS: Multivit, Therapeutic 1 TAB PO SCH (09:16)
[2022-07-09] MEDS ORDERED: VANCOMYCIN 1.75 GM/350 ML BAG 1.75 GM in Premix Bag 1 BAG IVPB SCH (17:00)
[2022-07-09] MEDS: Tamsulosin HCl 0.4 MG CAP PO SCH (20:39)
[2022-07-09] MEDS: Montelukast Sodium 10 mg Tablet PO SCH (20:39)
[2022-07-10] MEDS: Budesonide 0.5 MG/2 ML NEB NEB SCH ×3 (03:56→19:22)
[2022-07-10 04:41] LABS: #Monocytes 0.8 10x3/uL (0.0-1.1); #Neutrophils 5.7 10x3/uL (1.5-8.4); %Basophils 0.1 % (0.0-2.0); %Eosinophils 0.4 % (0.0-6.0); %Lymphocytes 4.1 % (18.0-47.0); %Monocytes 11.1 % (0.0-10.0); %Neutrophils 80.6 % (40.0-75.0); Mean Corpuscular HGB CONC 28.4 g/dL (32.0-36.0); Mean Corpuscular Hemoglobin 25.9 pg (27.0-33.0); Mean Corpuscular Volume 91.4 fl (81.2-95.1); Mean Platelet Volume 12.7 fl (7.4-10.4); Platelet Count 109 10x3/uL (150-450); RBC Distribution Width 19.1 % (11.5-14.5); Red Blood Cell (RBC) Count 3.47 10x6/uL (4.32-5.72)
[2022-07-10 04:45] LABS: Anion Gap 14 mmol/L (10-20); BUN (Urea Nitrogen) 59 mg/dL (8.4-25.7); Calc. Creatinine Clearance 57 mL/min (70-130); Calcium 8.5 mg/dL (7.8-10.44); Carbon Dioxide 34 mmol/L (23-31); Chloride 97 mmol/L (98-107); Estimated GFR 43; Glucose 96 mg/dL (83-110); Potassium 4.8 mmol/L (3.5-5.1); Sodium 140 mmol/L (136-145)
[2022-07-10] MEDS: Sodium Chloride 0.9% 1,000 ML IV SCH ×2 (04:55→11:37)
[2022-07-10] MEDS: Cefepime 1 GM in Sodium Chloride 0.9% 100 ML IVPB SCH ×2 (04:56→16:15)
[2022-07-10] MEDS: Levothyroxine Sodium 50 MCG TAB PO SCH (05:44)
[2022-07-10] MEDS: Digoxin 0.5 MG/2 ML AMP SLOW IVP SCH (09:18)
[2022-07-10] MEDS: Multivit, Therapeutic 1 TAB PO SCH (09:18)
[2022-07-10] MEDS: Enoxaparin Sodium 120 MG/0.8 ML SYRINGE SC SCH ×2 (09:18→21:25)
[2022-07-10] MEDS: Fluticasone Propionate Nasal Spray 16 gm Bottle NASAL SCH (09:18)
[2022-07-10] MEDS: Nystatin Powder 15 GM BOT TOP SCH ×2 (09:18→21:26)
[2022-07-10] MEDS: Famotidine/PF 20 mg/2ml Vial SLOW IVP SCH (09:18)
[2022-07-10] MEDS: Lidocaine 5% Patch TD SCH (09:19)
[2022-07-10] MEDS: Morphine 2 MG/ML VIAL SLOW IVP PRN (09:40)
[2022-07-10] MEDS ORDERED: Vancomycin HCl 1 GM in Sodium Chloride 0.9% 250 ML 250 ML IVPB SCH (16:00)
[2022-07-10] MEDS: Montelukast Sodium 10 mg Tablet PO SCH (21:25)
[2022-07-10] MEDS: Transdermal Patch Removal TOP SCH (21:26)
[2022-07-10] MEDS: Tamsulosin HCl 0.4 MG CAP PO SCH (21:26)
[2022-07-10] MEDS: HYDROcodone/Acetaminophen 5/325 mg Tablet PO PRN (22:34)
[2022-07-11] MEDS: Cefepime 1 GM in Sodium Chloride 0.9% 100 ML IVPB SCH ×2 (04:28→16:44)
[2022-07-11 05:10] LABS: #Eosinphils 0.1 10x3/uL (0.0-0.5); #Monocytes 0.9 10x3/uL (0.0-1.1); #Neutrophils 5.2 10x3/uL (1.5-8.4); %Basophils 0.3 % (0.0-2.0); %Eosinophils 0.9 % (0.0-6.0); %Lymphocytes 8.7 % (18.0-47.0); %Monocytes 12.8 % (0.0-10.0); %Neutrophils 75.3 % (40.0-75.0); Hemoglobin 8.4 g/dL (13.5-17.5); Mean Corpuscular HGB CONC 28.3 g/dL (32.0-36.0); Mean Corpuscular Hemoglobin 25.2 pg (27.0-33.0); Mean Corpuscular Volume 89.2 fl (81.2-95.1); Mean Platelet Volume 12.1 fl (7.4-10.4); Platelet Count 82 10x3/uL (150-450); RBC Distribution Width 19.2 % (11.5-14.5); Red Blood Cell (RBC) Count 3.33 10x6/uL (4.32-5.72); White Blood Cell (WBC) Count 6.9 10x3/uL (3.5-10.5)
[2022-07-11 05:19] LABS: Anion Gap 12 mmol/L (10-20); BUN (Urea Nitrogen) 55 mg/dL (8.4-25.7); Calc. Creatinine Clearance 70 mL/min (70-130); Calcium 8.3 mg/dL (7.8-10.44); Carbon Dioxide 31 mmol/L (23-31); Chloride 99 mmol/L (98-107); Estimated GFR 55; Glucose 91 mg/dL (83-110); Potassium 4.7 mmol/L (3.5-5.1); Sodium 137 mmol/L (136-145)
[2022-07-11 05:21] LABS: Digoxin 1.43 ng/mL (0.8-2.0)
[2022-07-11] MEDS: Levothyroxine Sodium 50 MCG TAB PO SCH (05:55)
[2022-07-11] MEDS: Budesonide 0.5 MG/2 ML NEB NEB SCH ×2 (07:10→19:03)
[2022-07-11] MEDS: Fluticasone Propionate Nasal Spray 16 gm Bottle NASAL SCH ×2 (07:21→09:23)
[2022-07-11] MEDS: Sodium Chloride 0.9% 1,000 ML IV SCH ×2 (07:21→10:55)
[2022-07-11] MEDS ORDERED: Digoxin 0.125 MG TAB PO SCH (09:00)
[2022-07-11] MEDS: Multivit, Therapeutic 1 TAB PO SCH (09:23)
[2022-07-11] MEDS: Apixaban 5 MG TAB PO SCH ×2 (09:24→20:50)
[2022-07-11] MEDS: Morphine 2 MG/ML VIAL SLOW IVP PRN (09:24)
[2022-07-11] MEDS: Digoxin 0.125 MG TAB PO SCH (09:24)
[2022-07-11] MEDS: Lidocaine 5% Patch TD SCH (09:25)
[2022-07-11] MEDS: Famotidine/PF 20 mg/2ml Vial SLOW IVP SCH (09:25)
[2022-07-11] MEDS: Nystatin Powder 15 GM BOT TOP SCH ×2 (09:25→21:05)
[2022-07-11] MEDS: VANCOMYCIN 1.25 GM/250 ML BAG 1.25 GM in Premix Bag 1 BAG IVPB SCH (10:55)
[2022-07-11] MEDS: Tamsulosin HCl 0.4 MG CAP PO SCH (20:50)
[2022-07-11] MEDS: Montelukast Sodium 10 mg Tablet PO SCH (20:50)
[2022-07-11] MEDS: HYDROcodone/Acetaminophen 5/325 mg Tablet PO PRN (20:50)
[2022-07-11] MEDS: Transdermal Patch Removal TOP SCH (21:05)
[2022-07-12] MEDS: Cefepime 1 GM in Sodium Chloride 0.9% 100 ML IVPB SCH (04:20)
[2022-07-12] MEDS: HYDROcodone/Acetaminophen 5/325 mg Tablet PO PRN (04:20)
[2022-07-12] MEDS: Sodium Chloride 0.9% 1,000 ML IV SCH (04:20)
[2022-07-12 05:00] LABS: Hemoglobin 8.5 g/dL (13.5-17.5); Mean Corpuscular HGB CONC 28.4 g/dL (32.0-36.0); Mean Corpuscular Hemoglobin 25.1 pg (27.0-33.0); Mean Corpuscular Volume 88.5 fl (81.2-95.1); Platelet Count 82 10x3/uL (150-450); RBC Distribution Width 19.4 % (11.5-14.5); Red Blood Cell (RBC) Count 3.38 10x6/uL (4.32-5.72); White Blood Cell (WBC) Count 6.2 10x3/uL (3.5-10.5)
[2022-07-12 05:05] LABS: #Eosinphils 0.1 10x3/uL (0.0-0.5); #Monocytes 0.7 10x3/uL (0.0-1.1); #Neutrophils 4.6 10x3/uL (1.5-8.4); %Basophils 0.3 % (0.0-2.0); %Eosinophils 1.3 % (0.0-6.0); %Lymphocytes 7.4 % (18.0-47.0); %Monocytes 11.7 % (0.0-10.0); %Neutrophils 76.5 % (40.0-75.0)
[2022-07-12 05:10] LABS: Anion Gap 14 mmol/L (10-20); BUN (Urea Nitrogen) 45 mg/dL (8.4-25.7); Calc. Creatinine Clearance 95 mL/min (70-130); Calcium 8.2 mg/dL (7.8-10.44); Carbon Dioxide 30 mmol/L (23-31); Chloride 104 mmol/L (98-107); Estimated GFR 79; Glucose 94 mg/dL (83-110); Potassium 4.5 mmol/L (3.5-5.1); Sodium 143 mmol/L (136-145)
[2022-07-12] MEDS: Levothyroxine Sodium 50 MCG TAB PO SCH (05:34)
[2022-07-12] MEDS: VANCOMYCIN 1.25 GM/250 ML BAG 1.25 GM in Premix Bag 1 BAG IVPB SCH (05:34)
[2022-07-12] MEDS: Budesonide 0.5 MG/2 ML NEB NEB SCH (07:13)
[2022-07-12] MEDS: Fluticasone Propionate Nasal Spray 16 gm Bottle NASAL SCH ×2 (07:33→09:23)
[2022-07-12] MEDS ORDERED: Famotidine/PF 20 mg/2ml Vial SLOW IVP SCH (09:00)
[2022-07-12] MEDS: Multivit, Therapeutic 1 TAB PO SCH (09:23)
[2022-07-12] MEDS: Lidocaine 5% Patch TD SCH (09:23)
[2022-07-12] MEDS: Nystatin Powder 15 GM BOT TOP SCH (09:23)
[2022-07-12] MEDS: Apixaban 5 MG TAB PO SCH (09:23)
[2022-07-12] MEDS: Digoxin 0.125 MG TAB PO SCH (09:23)
[2022-07-12] MEDS: Morphine 2 MG/ML VIAL SLOW IVP PRN (09:24)
[2022-07-12 12:09] VITALS: BP 96/55; TEMP 98.1
[2022-07-12] MEDS ORDERED: Cefepime 2 GM in Sodium Chloride 0.9% 100 ML IVPB SCH (16:00)
== END 2022-07-12 13:01 | DRG 177 ==
LOC: CSHERS 19:24 → CSHIMCU 23:16 → CSHTELE 07-09 17:28
PROVIDERS: ADMIT Student in an Organized Health Care Education/Training Program; ATTEND Internal Medicine
PROC: 5A09357 Assistance with Respiratory Ventilation, Less than 24 Consecutive Hours, Continuous Positive Airway Pressure (ICD-10-PCS; principal; 2022-07-08)
DX: J15.211 Pneumonia due to Methicillin susceptible Staphylococcus aureus (principal); G93.41 Metabolic encephalopathy; I21.A1 Myocardial infarction type 2; I50.33 Acute on chronic diastolic (congestive) heart failure; J96.21 Acute and chronic respiratory failure with hypoxia; J96.22 Acute and chronic respiratory failure with hypercapnia; I13.0 Hypertensive heart and chronic kidney disease with heart failure and stage 1 through stage 4 chronic kidney disease, or unspecified chronic kidney disease; N17.9 Acute kidney failure, unspecified; N39.0 Urinary tract infection, site not specified; R18.8 Other ascites; I48.11 Longstanding persistent atrial fibrillation; J44.9 Chronic obstructive pulmonary disease, unspecified; J15.6 Pneumonia due to other Gram-negative bacteria; E87.5 Hyperkalemia; Z20.822 Contact with and (suspected) exposure to COVID-19; G47.33 Obstructive sleep apnea (adult) (pediatric); M10.9 Gout, unspecified; E03.9 Hypothyroidism, unspecified; D63.1 Anemia in chronic kidney disease; N18.30 Chronic kidney disease, stage 3 unspecified; C44.92 Squamous cell carcinoma of skin, unspecified; I35.0 Nonrheumatic aortic (valve) stenosis; Z91.09 Other allergy status, other than to drugs and biological substances; Z79.899 Other long term (current) drug therapy; Z98.890 Other specified postprocedural states; Z79.01 Long term (current) use of anticoagulants; Z99.81 Dependence on supplemental oxygen; Z90.49 Acquired absence of other specified parts of digestive tract
CPT/HCPCS: 36415; 36416; 71045; 74177; 76870; 80048; 80053; 80162; 81003; 81015; 82553; 82805; 83605; 83690; 83735; 83880; 84443; 84484; 85025; 87040; 87070; 87077; 87081; 87086; 87186; 87205; 93005; 93306; 94640; 94660; 94760; 96361; 96365; 96375; 96376; J0456; J0692; J0696; J1160; J1650; J2270; J2405; J3370; J3490; J7050; J7620; J7626; Q9967; S0028; U0002

== ENCOUNTER 2022-07-15 11:48 | Emergency (ER) | payer MEDICARE, OTHER ==
[2022-07-15] MEDS ORDERED: Fentanyl 100 MCG/2 ML VIAL ONE (14:01)
[2022-07-15 14:24] LABS: #Eosinphils 0.1 10x3/uL (0.0-0.5); #Monocytes 0.8 10x3/uL (0.0-1.1); #Neutrophils 7.2 10x3/uL (1.5-8.4); %Basophils 0.1 % (0.0-2.0); %Eosinophils 1.6 % (0.0-6.0); %Lymphocytes 6.4 % (18.0-47.0); %Monocytes 8.5 % (0.0-10.0); %Neutrophils 81.7 % (40.0-75.0); Mean Corpuscular HGB CONC 28.3 g/dL (32.0-36.0); Mean Corpuscular Hemoglobin 25.2 pg (27.0-33.0); Mean Platelet Volume 11.8 fl (7.4-10.4); Platelet Count 116 10x3/uL (150-450); RBC Distribution Width 19.2 % (11.5-14.5); Red Blood Cell (RBC) Count 3.18 10x6/uL (4.32-5.72); White Blood Cell (WBC) Count 8.8 10x3/uL (3.5-10.5)
[2022-07-15 14:32] LABS: INR-International Normal Ratio 1.2; PTT 34.4 sec (22.0-33.0); Prothrombin Time 13.3 sec (9.5-12.1)
[2022-07-15 14:41] LABS: ALT (SGPT) 14 U/L (8-55); AST (SGOT) 15 U/L (5-34); Albumin 2.7 g/dL (3.4-4.8); Alkaline Phosphatase 72 U/L (40-110); Anion Gap 14 mmol/L (10-20); BUN (Urea Nitrogen) 33 mg/dL (8.4-25.7); Bilirubin, Total 0.9 mg/dL (0.2-1.2); CK (CPK) 36 U/L (30-200); Calc. Creatinine Clearance 0 mL/min (70-130); Calcium 8.1 mg/dL (7.8-10.44); Carbon Dioxide 32 mmol/L (23-31); Chloride 103 mmol/L (98-107); Estimated GFR 90; Globulin 2.6 g/dL (2.4-3.5); Glucose 87 mg/dL (83-110); Potassium 4.2 mmol/L (3.5-5.1); Protein, Total 5.3 g/dL (5.8-8.1); Sodium 145 mmol/L (136-145)
[2022-07-15 15:01] LABS: CKMB 1.7 ng/mL (0-6.6)
== END 2022-07-15 18:25 | disposition home or self-care (01) ==
LOC: CSHERS 11:48
DX: S40.012A Contusion of left shoulder, initial encounter (principal); E03.9 Hypothyroidism, unspecified; I10 Essential (primary) hypertension; K21.9 Gastro-esophageal reflux disease without esophagitis; J44.9 Chronic obstructive pulmonary disease, unspecified; X58.XXXA Exposure to other specified factors, initial encounter
CPT/HCPCS: 71045; 80053; 82550; 82553; 83880; 84484; 85025; 85610; 85730; 93005; 93923; 96374; 96376; J3010